=== PATIENT | female | born 1965 | race Caucasian/White ===

== ENCOUNTER 2018-11-29 19:22 | Emergency (ER) | payer OTHER, SELFPAY ==
[2018-11-29 19:23] VITALS: BP 121/78; PULSE 80; RESP 17; TEMP 36.4; O2SAT 97; BMI 30.5
--- NOTE | 2018-11-29 19:33 | RAD_ITS ---
STUDY: X-RAY - LEFT WRIST REASON FOR EXAM: Female, 53 years old. Fall. Pain. TECHNIQUE: 3 view(s) of the wrist were obtained. COMPARISON: None. FINDINGS: There is comminuted nondisplaced fracture of the distal radial metaphysis with possible intra-articular extension. No angulation. No significant impaction. Normal appearance of the ulna. Normal radiocarpal articulation. Normal distal radioulnar articulation. Normal carpal bones. Normal carpal articulations. Normal carpometacarpal articulation of the thumb. Normal second through fifth carpometacarpal articulations. Normal visualized metacarpal bones. The soft tissue structures are unremarkable. RAD/Wrist min 3 Views IMPRESSION: Comminuted fractures of the distal radial metaphysis with a nearly normal bone contour. Electronically Signed: Salvador Breen MD at 20:26 EDT , Service support ,
--- NOTE | 2018-11-29 19:34 | ED.VISSUMM ---
- ER Visit Summary Date of Service: 11/29/18 Chief Complaint: Left wrist injury History of Present Illness: The patient is a 53 F presenting with left wrist injury. Patient was walking her dog. She states the dog started to pull and she fell forward. She landed on outstretched left upper extremity. She did not hit her head or lose consciousness. She tried Aleve at home. She complains of pain in her left wrist. Denies other injury. Physical Examination: Vitals are stable. Patient is afebrile. Alert no acute distress. HEENT exam is unremarkable. Neck is nontender Lungs are clear and equal bilaterally. Heart is regular rate and rhythm. Extremities left dorsal wrist tenderness with painful range of motion. Normal sensation. Normal cap refill. Skin is warm and dry. No focal neurologic deficit. Remainder of exam is unremarkable. Emergency Department Course and Treatment: Left wrist x-ray shows comminuted fractures of the distal radial metaphysis with a nearly normal bone contour. Patient was put in an Ortho-Glass splint. Advised to ice and elevate. She is given prescription for Percocet. Advised to follow up with Dr. Leo. Advised return to ED for worsening complaints. Disposition: Discharge home Impression: Left distal radius fracture, status post mechanical fall This note was generated with [employer] dictation software. It may contain incorrect words, spelling, and punctuation that were not noted in review of the chart prior to signing ED Disposition - Plan for ED Patient: Instructions: ED Fx Wrist General Prescriptions: Oxycodone HCl/Acetaminophen [Percocet 5/325] 1 tablet PO Q6H PRN PRN 3 Days #12 tablet PRN Reason: Pain Referrals: Fidel Mosqueda MD [Primary Care Provider] - Neo Leo MD [STAFF PHYSICIAN] -
--- NOTE | 2018-11-29 20:09 | ED.DEP ---
ED Disposition - Plan for ED Patient: Instructions: ED Fx Wrist General Prescriptions: Oxycodone HCl/Acetaminophen [Percocet 5/325] 1 tablet PO Q6H PRN PRN 3 Days #12 tablet PRN Reason: Pain Referrals: Fidel Msoqueda MD [Primary Care Provider] - Neo Leo MD [STAFF PHYSICIAN] -
[2018-11-29] MEDS: oxyCODONE 5 MG Tablet PO (20:12)
[2018-11-29 21:01] VITALS: BP 120/68; PULSE 78; RESP 16; O2SAT 97
== END 2018-11-29 21:03 | disposition home or self-care (01) ==
LOC: ED 19:54
PROVIDERS: Emergency Provider Emergency Medicine; Family Provider Internal Medicine; PCP Internal Medicine
DX: S52.502A Unspecified fracture of the lower end of left radius, initial encounter for closed fracture (principal); W18.30XA Fall on same level, unspecified, initial encounter; Y93.K1 Activity, walking an animal; Y92.89 Other specified places as the place of occurrence of the external cause; Y99.8 Other external cause status; J44.9 Chronic obstructive pulmonary disease, unspecified; Z72.0 Tobacco use; Z79.51 Long term (current) use of inhaled steroids
CPT/HCPCS: 73110; 99283

== ENCOUNTER → 2019-09-26 15:54 | Outpatient (CLI) | payer OTHER, SELFPAY ==
--- NOTE | 2019-09-26 15:57 | CT_ITS ---
STUDY: LOW DOSE CT LUNG CANCER SCREENING REASON FOR EXAM: Female, 53 years old. PT STATED 1PPD X 40 YEARS SMOKER, LOW DOSE SCREENING RADIATION DOSAGE (If Supplied By Facility): CTDIvol = ( 3.02 ) mGy, DLP = ( 100.81 ) mGycm TECHNIQUE: No contrast was administered. Low dose technique was utilized (average mAS-38 and kVp 120). 1.25 mm axial source images with a slice interval of 1.25-mm were reconstructed in lung windows. 2.5 mm axial source images with a slice interval of 2.5-mm were reconstructed in lung windows. 5.0 mm axial source images with a slice interval of 5.0-mm were reconstructed in soft tissue windows. Nodule measured using lung windows on PACS and/or independent workstation with automated measurement of minimum and maximum diameter. Nodule measurement reported as average diameter rounded to the nearest whole number. Growth is defined as an increase ins size of greater than 1.5 mm. COMPARISON: None. FINDINGS: Total lung nodules (excluding granulomas): None Emphysema: Mild cystic emphysematous changes are present Endobronchial lesion: None on the current study. There is hyperinflation of the lungs consistent with chronic obstructive lung disease (COPD). No consolidation is seen. Linear scarring or atelectasis is present across the posterior aspect of the left lower lobe. Some minor groundglass edema is present at the periphery of this region. Focal subsegmental atelectasis or linear scarring is also seen in the lingula of the left upper lobe. No pleural plaques are seen. There is no demonstrated pleural abnormality. Normal heart size and pericardium. Normal mediastinum. Normal hilar regions. Normal unenhanced pulmonary arteries. There is atherosclerotic calcification of the aortic arch with tortuosity and elongation of the aortic arch and descending thoracic aorta. There are multi-level degenerative changes of the thoracic spine. Cervical spine hardware is present. A chronic mild old compression deformity of the T12 vertebral body is present. Small ossicle near the spinous process of T12 noted. There is no demonstrated significant abnormality of the visualized upper abdomen, although evaluation is not optimized without soft tissue windows. CT/Low Dose CT Lung Screening IMPRESSION: 1. COPD and mild emphysematous cystic changes 2. Linear scarring or atelectasis is present across the posterior aspect of the left lower lobe. Some minor groundglass edema is present at the periphery of this region. 3. Focal subsegmental atelectasis or linear scarring is also seen in the lingula of the left upper lobe. 4. No pleural plaques are seen 5. Lung-RADS category 1 - Continue annual screening with LDCT in 12 months. IMPORTANT NOTES FOR USE: ACR Lung-RADS Version 1.0 Assessment Categories Release Date: November 04, 2013 Category: Coded 0-4 bases on nodule(s) with highest degree of suspicion. Negative screen is defined as categories 1 and 2; a positive screen is defined as categories 3 and 4. Category 3 and 4A nodules that are unchanged on interval CT should be coded as category 2, and individuals returned to screening in 12 months. Category 4X: Category 3 or 4 nodules with additional imaging findings that increase the suspicion of lung cancer, such as spiculation, GGN that doubles in size in 1 year, enlarged lymph notes, etc. Category Modifiers: S (significant finding unrelated to lung cancer) and C (prior history of treated lung cancer) may be added to the 0-4 Lung-RADS Electronically Signed: Fabricio Sebastian MD at 18:12 EDT , Service support ,
== END ==
PROVIDERS: PCP Internal Medicine; Referring Provider Internal Medicine Pulmonary Disease; Visit Provider Internal Medicine Pulmonary Disease
DX: Z87.891 Personal history of nicotine dependence (principal)
CPT/HCPCS: G0297